=== PATIENT | female | born 1990 | race Caucasian/White ===

== ENCOUNTER 2019-01-04 05:45 | Inpatient (IN) | payer BC ==
[2019-01-04] MEDS ORDERED: CARBOPROST TROMETHAMINE 250 MCG/ML 1 ML AMP IM PRN (05:50)
[2019-01-04] MEDS ORDERED: LIDOCAINE 0.5% (PF) 5 MG/ML (50 ML SDV) SQ PRN (05:50)
[2019-01-04] MEDS ORDERED: OXYTOCIN 30 UNITS/500 ML NS 30 UNIT in SALINE 1 500ML.BAG IV SCH (05:50)
[2019-01-04] MEDS ORDERED: TERBUTALINE 1 MG/ML VIAL SQ PRN (05:50)
[2019-01-04] MEDS ORDERED: AMPICILLIN 2,000 MG in SODIUM CHLORIDE 0.9% 100 ML IVPB STA (05:50)
[2019-01-04] MEDS ORDERED: METHYLERGONOVINE 0.2 MG/ML 1 ML AMP IM PRN (05:50)
[2019-01-04] MEDS ORDERED: OXYTOCIN 10 UNIT/ML 1 ML VIAL IM PRN (05:50)
--- NOTE | 2019-01-04 05:58 | P.HPOB ---
History of Present Illness H&P Date: 01/04/19 Chief Complaint: Requested induction of labor This patient is a pleasant 28-year-old 3 para 2 female estimated date of confinement 01/07/2019 estimated gestational age 39-4/7 weeks who presents to labor and delivery for requested induction of labor. Patient's care has been uncomplicated. Patient has been uncomfortable her cervix is favorable and therefore requested induction at this time. Review of Systems Gastrointestinal: Reports heartburn Genitourinary: Reports Menstruation: Reports amenorrhea Past Medical History Past Medical History: No Reported History Additional Past Medical History / Comment(s): HAD JAUNDICE , MIGRAINES, RECENT SINUS INFECTION History of Any Multi-Drug Resistant Organisms: None Reported Past Surgical History: Hernia Repair Additional Past Surgical History / Comment(s): LEFT inguinal HERNIA REPAIR Past Anesthesia/Blood Transfusion Reactions: Motion Sickness Additional Past Anesthesia/Blood Transfusion Reaction / Comment(s): MILD CLAUSTERPHOBIA Past Psychological History: No Psychological Hx Reported Additional Psychological History / Comment(s): . Lives in the family home with her and 2 children. 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 No tobacco use or alcohol use. [place] no new animal exposures. Her 2 children are well her has been well. No other ill contacts Smoking Status: Never smoker Past Alcohol Use History: Occasional Past Drug Use History: None Reported - Past Family History Father Family Medical History: Hypertension Additional Family Medical History / Comment(s): DEPRESSION Mother Family Medical History: Osteoarthritis (OA), Thyroid Disorder Additional Family Medical History / Comment(s): "HEART SKIPS A BEAT" Medications and Allergies Home Medications Medication Instructions Recorded Confirmed Type Pnv No.95/Ferrous Fum/Folic AC 1 each PO DAILY 01/04/19 01/04/19 History [ Multivitamin Tablet] Allergies Allergy/AdvReac Type Severity Reaction Status Date / Time No Known Allergies Allergy Verified 01/04/19 05:49 Exam Intake and Output 01/03/19 01/03/19 01/04/19 14:59 22:59 06:59 Other: Weight 87.543 kg - OBG Physical Exam Abdomen: bowel sounds normal, no diffuse tenderness, no bruit present, no guarding noted, no hepatomegaly, no splenomegaly, no mass Vulva: both: normal Vagina: normal moisture, no discharge Cervix: no lesion (Cervix in the office is 3 cm dilated.), no discharge Uterus: enlarged (Fundal height is consistent with gestational age.) Results blood work shows she is A positive, rubella nonimmune, RPR is nonreactive, hepatitis B is negative, HIV is nonreactive, Glucola was normal, ultrasounds have been normal, group B strep was positive. Assessment and Plan Assessment: This is a pleasant 28-year-old 3 para 2 female 39-4/7 weeks gestation admitted to labor and delivery for requested induction of labor. Patient is a positive group B strep culture and therefore we'll give her IV antibiotics, Pitocin induction per protocol, and anticipate vaginal delivery. (1) 39 weeks gestation of Current Visit: Yes Status: Acute Code(s): Z3A.39 - 39 WEEKS GESTATION OF SNOMED Code(s): 81444436 (2) Group B streptococcal carriage complicating Current Visit: Yes Status: Acute Code(s): O99.820 - STREPTOCOCCUS B CARRIER STATE COMPLICATING SNOMED Code(s): 188668077288188 (3) Elective induction of labor planned Current Visit: Yes Status: Acute Code(s): QYA3890 - SNOMED Code(s): 109977079
[2019-01-04 05:59] VITALS: BMI 26.2
[2019-01-04] MEDS: LACTATED RINGERS 1,000 ML IV SCH ×2 (06:12→09:37)
[2019-01-04 06:32] LABS: Basophils % (A) 0 %; Eosinophils # (A) 0.1 k/uL (0-0.7); Eosinophils % (A) 1 %; HCT 37.4 % (34.0-46.0); HGB 12.6 gm/dL (11.4-16.0); Lymphocytes # (A) 1.4 k/uL (1.0-4.8); Lymphocytes % (A) 18 %; MCH 30.7 pg (25.0-35.0); MCHC 33.7 g/dL (31.0-37.0); MCV 90.9 fL (80.0-100.0); Mean Platelet Volume 7.9; Monocytes # (A) 0.4 k/uL (0-1.0); Monocytes % (A) 6 %; Neutrophils # (A) 5.7 k/uL (1.3-7.7); Neutrophils % (A) 73 %; Platelet Count 264 k/uL (150-450); RBC 4.12 m/uL (3.80-5.40); RDW 13.8 % (11.5-15.5); WBC 7.8 k/uL (3.8-10.6)
[2019-01-04] MEDS: AMPICILLIN 1,000 MG in SODIUM CHLORIDE 0.9% 50 ML IVPB SCH ×2 (07:36→10:44)
[2019-01-04] MEDS ORDERED: SODIUM CHLORIDE 0.9% 100 ML BAG ONE (09:31)
[2019-01-04] MEDS ORDERED: fentaNYL (PF) 50 MCG/ML 5 ML AMP ONE (09:31)
[2019-01-04] MEDS ORDERED: ROPIVACAINE 5MG/ML 20ML VIAL ONE (09:31)
[2019-01-04] MEDS ORDERED: WITCH HAZEL 1 EACH MED..PAD TOPICAL PRN (10:45)
[2019-01-04] MEDS ORDERED: diphenhydrAMINE 50 MG/ML 1 ML VIAL IVP PRN (10:45)
[2019-01-04] MEDS ORDERED: BISACODYL 10 MG SUPP RECTAL PRN (10:45)
[2019-01-04] MEDS ORDERED: BENZOCAINE/MENTHOL SPRAY 1 GM/SPRAY AEROSOL TOPICAL PRN (10:45)
[2019-01-04] MEDS ORDERED: ZOLPIDEM 5 MG TAB PO PRN (10:45)
[2019-01-04] MEDS ORDERED: LANOLIN CREAM 5 GM TUBE TOPICAL PRN (10:45)
[2019-01-04] MEDS ORDERED: OXYTOCIN 20 UNITS/1000 ML NS 1,000 ML IV SCH (10:45)
[2019-01-04] MEDS ORDERED: MEASLES-MUMPS-RUBELLA VACC/PF 12,500 UNIT/0.5 ML VIAL SQ ONE (10:45)
[2019-01-04] MEDS ORDERED: diphenhydrAMINE 25 MG CAP PO PRN (10:45)
[2019-01-04] MEDS ORDERED: HYDROCORTISONE 2.5% RECTAL CREAM 30 GM TUBE RECTAL PRN (10:45)
[2019-01-04] MEDS ORDERED: SIMETHICONE 80 MG CHEWABLE PO PRN (10:45)
[2019-01-04] MEDS ORDERED: ACETAMINOPHEN TAB 325 MG TAB PO PRN (10:45)
[2019-01-04] MEDS: SENNOSIDES-DOCUSATE SODIUM 1 EACH TAB PO SCH ×2 (11:13→22:17)
[2019-01-04] MEDS: IBUPROFEN 600 MG TAB PO PRN (22:17)
--- NOTE | 2019-01-05 05:08 | P.PNOBGVD ---
Subjective - Subjective Patient reports: Reports appetite normal, Reports voiding normally, Reports pain well controlled, Reports ambulating normally : doing well Objective - Latest Vital Signs Latest vital signs: Vital Signs Temp Pulse Resp BP Pulse Ox 01/04/19 23:54 98.0 F 74 14 112/61 100 01/04/19 20:00 98.4 F 84 14 127/81 01/04/19 16:00 98.0 F 103 H 18 114/74 01/04/19 12:35 96.4 F L 77 18 109/78 01/04/19 12:19 76 16 112/74 01/04/19 11:20 73 16 108/72 01/04/19 11:05 78 16 111/74 01/04/19 10:50 97.6 F 82 16 114/76 01/04/19 10:35 94 16 117/79 01/04/19 05:54 96.9 F L 83 16 130/90 Intake and Output 01/04/19 01/04/19 01/05/19 14:59 22:59 06:59 Intake Total 3000 1600 Output Total 100 Balance 2900 1600 Intake: IV 1000 Invasive Line 1 1000 Intake, IV Titration 2000 1000 Amount Lactated Ringers 1,000 ml 2000 @ 125 mls/hr IV .Q8H [facility] Rx#:[id number] Oxytocin 20 Units/1000 ml 1000 Ns 1,000 ml @ Per Protocol IV .Q0M [facility] Rx#: [id number] Oral 600 Output: Estimated Blood Loss 100 Other: # Voids 1 1 2 - Exam Lungs: bilateral: normal Chest: Normal S1, Normal S2 Extremities: Present: normal Abdomen: Present: normal appearance, soft Uterus: Present: normal, firm Assessment and Plan Assessment: day #1. Patient's resting without complaints and would like to go home. Vital signs are stable and she is afebrile. Uterus is firm nontender and she is having normal lochia. My impression this is a normal course. Plan is to continue routine care discharge home later today. (1) 39 weeks gestation of Current Visit: Yes Status: Acute Code(s): Z3A.39 - 39 WEEKS GESTATION OF SNOMED Code(s): 09394448 (2) Group B streptococcal carriage complicating Current Visit: Yes Status: Acute Code(s): O99.820 - STREPTOCOCCUS B CARRIER STATE COMPLICATING SNOMED Code(s): 683519261039846 (3) Elective induction of labor planned Current Visit: Yes Status: Acute Code(s): PDG4493 - SNOMED Code(s): 995456138
--- NOTE | 2019-01-05 05:08 | P.PROBDLV ---
Vaginal Delivery Note - . Vaginal Delivery Note: Normal spontaneous vaginal delivery viable male infant Apgars 9 and 9 delivery time was 1030 hrs. Please see dictated H&P for intimate details of this patient's admission. Brief summary this is a pleasant 28-year-old 3 para 2 female 39-4/7 weeks gestation admitted to labor and delivery for requested elective induction of labor. On admission patient is 3 cm dilated has artificial rupture membranes for clear fluid. She is given that antibiotics for positive group B strep status. Labor progresses she does get an epidural for pain control. Patient quickly gets to complete pushes the head to the perineum. Posterior perineum was supported we have controlled delivery of infant's head over the intact perineum. Mouth and nares are bulb suctioned. There is no evidence of nuchal cord. With gentle downward traction we then have deliver the anterior and posterior shoulder and rest this infant's body. This is a vigorous viable male Apgars are 9 and 9 delivery time is 1030 hrs. After delivery of the infant the umbilical cord is doubly clamped and cut appears to be trivascular. Placenta spontaneously delivered intact. Inspection of perineum shows no lacerations and no repair. All counts correct 3. There are no complications.
[2019-01-05] MEDS: IBUPROFEN 600 MG TAB PO PRN (09:55)
[2019-01-05] MEDS: SENNOSIDES-DOCUSATE SODIUM 1 EACH TAB PO SCH (09:56)
[2019-01-05 10:00] VITALS: BP 112/66; PULSE 90; RESP 16; TEMP 97.8
== END 2019-01-05 12:40 | disposition home or self-care (01) | DRG 807 ==
LOC: 4FBP 05:45
PROVIDERS: ADMIT Obstetrics & Gynecology; ATTEND Obstetrics & Gynecology
PROC: 10E0XZZ Delivery of Products of Conception, External Approach (ICD-10-PCS; principal; 2019-01-04)
PROC: 3E033VJ Introduction of Other Hormone into Peripheral Vein, Percutaneous Approach (ICD-10-PCS; 2019-01-04)
PROC: 10907ZC Drainage of Amniotic Fluid, Therapeutic from Products of Conception, Via Natural or Artificial Opening (ICD-10-PCS; 2019-01-04)
PROC: 00HU33Z Insertion of Infusion Device into Spinal Canal, Percutaneous Approach (ICD-10-PCS; 2019-01-04)
PROC: 3E0R3BZ Introduction of Anesthetic Agent into Spinal Canal, Percutaneous Approach (ICD-10-PCS; 2019-01-04)
PROC: 3E0134Z Introduction of Serum, Toxoid and Vaccine into Subcutaneous Tissue, Percutaneous Approach (ICD-10-PCS; 2019-01-04)
DX: O99.824 Streptococcus B carrier state complicating childbirth (principal); Z37.0 Single live birth; Z3A.39 39 weeks gestation of pregnancy; O99.89 Other specified diseases and conditions complicating pregnancy, childbirth and the puerperium; G43.909 Migraine, unspecified, not intractable, without status migrainosus; Z23 Encounter for immunization; Z79.899 Other long term (current) drug therapy; Z98.890 Other specified postprocedural states; Z82.49 Family history of ischemic heart disease and other diseases of the circulatory system; Z81.8 Family history of other mental and behavioral disorders; Z83.49 Family history of other endocrine, nutritional and metabolic diseases; Z82.61 Family history of arthritis; Z81.1 Family history of alcohol abuse and dependence
CPT/HCPCS: 85025; 86850; 86900; 86901; 90471; 90707